=== PATIENT | female | born 1945 | race Caucasian/White ===

== ENCOUNTER 2021-06-02 16:57 | Inpatient (IN) | payer MEDICARE, BC ==
[~2021-06-02] VITALS: Ht 167.6 cm; Wt 62.3 kg
[2021-06-02 17:52] LABS: HEMATOCRIT 42.9 % (37.0-47.0); HEMOGLOBIN 13.6 g/dl (12.5-16.0); MEAN CELL VOLUME 92 fl (80.0-100.0); MEAN CORPUSCULAR HEMOGLOBIN 29 pg (27-31); MEAN CORPUSCULAR HGB CONC 32 g/dl (33.0-37.0); MEAN PLATELET VOLUME 10.2 fl (7.4-10.4); PLATELET COUNT 242 K/mm3 (130-400); RED BLOOD COUNT 4.66 M/mm3 (4.10-5.30); REDCELL DISTRIBUTION WIDTH-CV 13.8 % (11.5-14.5)
[2021-06-02 19:08] LABS: LYMPHOCYTE 9 % (20.0-51.0); NEUTROPHILS 86 % (42.0-75.2); PLATELET ESTIMATE NORMAL (NORMAL)
[2021-06-02 19:09] LABS: HYPOCHROMIA 1+
[2021-06-02 20:49] LABS: ALBUMIN 3.2 gm/dL (3.4-4.8); BILIRUBIN,TOTAL 0.9 mg/dL (0.2-1.2); CALCIUM 9.1 mg/dL (8.4-10.2); CREATININE, serum 0.8 mg/dL (0.57-1.11); POTASSIUM 4.2 mmol/L (3.5-4.5); TOTAL PROTEIN 7.1 gm/dL (6.2-8.1)
[2021-06-02 21:06] LABS: TROPONIN-I 0.017 ng/mL (0.00-0.033)
[2021-06-02] MEDS ORDERED: LIPITOR20 MG PO (21:53)
[2021-06-02 22:29] VITALS: BP 140/70; PULSE 97; TEMP 97.7
[2021-06-02] MEDS ORDERED: LASIX 20MG TABL20 MG PO (22:52)
[2021-06-02] MEDS ORDERED: FOSAMAX 70MG TA70 MG PO (22:52)
[2021-06-02] MEDS ORDERED: RT SPIRIVA18 MCG IH (22:52)
[2021-06-02] MEDS ORDERED: CATAPRES0.2 MG PO (22:53)
[2021-06-02] MEDS ORDERED: ASPIRIN 81M81 MG/TA2 PO (22:55)
[2021-06-02] MEDS ORDERED: OXYGEN (22:59)
[2021-06-02] MEDS ORDERED: VITAMINC1000TA PO (23:00)
[2021-06-02] MEDS ORDERED: VITAMIN D31000 IU PO (23:00)
[2021-06-02] MEDS ORDERED: OSCAL 500 TAB500 MG PO (23:01)
[2021-06-02] MEDS ORDERED: KLOR-CON 1010 MEQ PO (23:01)
[2021-06-02] MEDS ORDERED: MUCINEX 60600 MG/TA1 PO (23:02)
[2021-06-02] MEDS ORDERED: ALBUTEROL1.25 MG/3 IH (23:02)
[2021-06-03 00:32] VITALS: BP 113/89; PULSE 81; TEMP 97.7
[2021-06-03 04:59] VITALS: BP 140/63; PULSE 86; TEMP 97.6
[2021-06-03 06:42] LABS: HEMATOCRIT 42.3 % (37.0-47.0); HEMOGLOBIN 13.5 g/dl (12.5-16.0); MEAN CELL VOLUME 90 fl (80.0-100.0); MEAN CORPUSCULAR HEMOGLOBIN 29 pg (27-31); MEAN CORPUSCULAR HGB CONC 32 g/dl (33.0-37.0); MEAN PLATELET VOLUME 10.7 fl (7.4-10.4); PLATELET COUNT 190 K/mm3 (130-400); RED BLOOD COUNT 4.68 M/mm3 (4.10-5.30); REDCELL DISTRIBUTION WIDTH-CV 13.7 % (11.5-14.5)
[2021-06-03 07:06] LABS: CALCIUM 9.1 mg/dL (8.4-10.2); CREATININE, serum 0.69 mg/dL (0.57-1.11); MAGNESIUM 2.1 mg/dL (1.6-2.6); POTASSIUM 4.2 mmol/L (3.5-4.5)
[2021-06-03 07:20] VITALS: BP 142/77; PULSE 91; TEMP 97.5
[2021-06-03 07:38] LABS: BAND 8 % (0-10); BASOPHIL 1 % (0-2); LYMPHOCYTE 2 % (20.0-51.0); METAMYELOCYTE 1 % (0-0); NEUTROPHILS 89 % (42.0-75.2); OVALOCYTES 1+
[2021-06-03 07:39] LABS: PLATELET ESTIMATE NORMAL (NORMAL); POLYCHROMASIA 1+
--- NOTE | 2021-06-03 09:28 | NUR ---
Patient IV leaky in right AC. New IV started in the left hand. Patient denies any pain other than some stabbing pain when taking deep breaths, which is not abnormal for her. Patient otherwise has no other concerns. Independent in the room. Call light is w/in reach. Instructed to call if any needs arise.
--- NOTE | 2021-06-03 09:43 | NUR ---
social contact worker met with patient to discuss discharge plan. Patient states that she lives at home with her Misha Mejia in [place]. Patient states that she is fully independent with her ADL's and does not utilize any DME to assist with mobility. Patient states that she utilizes 2L of home oxygen at night which is managed through [facility]. PCP is Dr.Jason Lovett and she follows for pumonology. She utilizes [facility] in for perscriptions with no cost difficulty. Patient reports that she does not have a DPOA-HC established. Education provided and the patient verbalizes her agreement with her being her decision maker. Patient states that her has major hearing loss and that she would like her daughter Audra ([phone]) being her point of contact. Patient is planning on returning home with no concerns. Discharge plan: Home
--- NOTE | 2021-06-03 09:46 | NUR ---
Initial visit; Patient thanked Curing Machine Operator for looking in on her and offering God's blessings.
[2021-06-03 12:04] VITALS: BP 147/83; PULSE 84; TEMP 97.5
[2021-06-03] MEDS ORDERED: ALBUTEROL0.83 MG/ML IH (13:54)
[2021-06-03] MEDS ORDERED: RT ADVAIR 228 DISKUS IH (13:57)
[2021-06-03 15:20] VITALS: BP 141/69; PULSE 92; TEMP 97.9
--- NOTE | 2021-06-03 16:35 | NUR ---
Patient has done well today. Denies any concerns. Remains independent in the room w/ call light in reach.
[2021-06-03 20:18] VITALS: BP 147/72; PULSE 103; TEMP 97.8
[2021-06-04 00:26] VITALS: BP 148/63; PULSE 95; TEMP 97.6
[2021-06-04 04:08] VITALS: BP 172/80; PULSE 92; TEMP 97.8
[2021-06-04 04:30] VITALS: BP 160/74
--- NOTE | 2021-06-04 06:45 | NUR ---
ASSESSMENT COMPLETE FOR THIS SHIFT. PT RESTING IN BED. PT DENIED PAIN, PALPITATIONS, SOB, N,V,D OR DIZZINESS. PT DID COMPLAIN OF NOT BEING ABLE TO SLEEP. HOSPITALIST CALLED. MELATONIN ORDERED AND GIVEN. MELATONIN WAS EFFECTIVE FOR SEVERAL HOURS. PT HAD AN OTHERWISE UNEVENTFUL NIGHT UNTIL HER 0700HR DOXYCYCLINE VIA IV WAS STATED AND PT COMPLAINED OF PAIN. I ATTEMPTED UNSUCCESSFULLY TO START A NEW IV. DAYSHIFT RN INFORMED AND SHE WILL ATTEMPT A NEW IV SITE WELL. PT EXPRESSED NO OTHER NEEDS AT THIS TIME. CALL LIGHT WITHIN REACH.
[2021-06-04 07:18] VITALS: BP 177/86; PULSE 98; TEMP 97.8
--- NOTE | 2021-06-04 08:19 | NUR ---
Patient's IV was bothering her too bad, c/o of burning. This RN attempted to start an IV and was unsuccessful. Patient requested to switch to PO medications. Hospitalist was called and felt this was appropriate. Orders to be placed by hospitalist. Otherwise, patient appears to be doing well and has not concerns at the moment.
[2021-06-04 08:52] LABS: HEMATOCRIT 38.8 % (37.0-47.0); HEMOGLOBIN 12.7 g/dl (12.5-16.0); MEAN CELL VOLUME 89 fl (80.0-100.0); MEAN CORPUSCULAR HEMOGLOBIN 29 pg (27-31); MEAN CORPUSCULAR HGB CONC 33 g/dl (33.0-37.0); MEAN PLATELET VOLUME 10.3 fl (7.4-10.4); PLATELET COUNT 265 K/mm3 (130-400); RED BLOOD COUNT 4.37 M/mm3 (4.10-5.30); REDCELL DISTRIBUTION WIDTH-CV 13.4 % (11.5-14.5)
[2021-06-04 09:13] LABS: CALCIUM 9.3 mg/dL (8.4-10.2); CREATININE, serum 0.68 mg/dL (0.57-1.11); MAGNESIUM 1.8 mg/dL (1.6-2.6); POTASSIUM 3.7 mmol/L (3.5-4.5)
[2021-06-04] MEDS ORDERED: DOXYCYCLINE 10100 MG PO (10:49)
[2021-06-04] MEDS ORDERED: PREDNISONE10 MG PO (10:51)
--- NOTE | 2021-06-04 13:40 | NUR ---
All discharge education/instructions discussed. Patient verbalized understanding and signed paperwork. Patient had no IV access or telemetry in place. Patient is waiting for her to arrive and then she will be esocrted out w/ assistance.
--- NOTE | 2021-06-04 15:27 | NUR ---
Patient escorted out via wheelchair by PCT. Patient had no concerns at the time of discharge.
== END 2021-06-04 15:25 | disposition home or self-care (01) | DRG 190 ==
LOC: COL.ER 16:57 → MEDICAL 19:05
PROVIDERS: Nurse Practitioner Primary Care; Student in an Organized Health Care Education/Training Program; ADMIT Family Medicine
DX: J43.9 Emphysema, unspecified (principal); J96.21 Acute and chronic respiratory failure with hypoxia; I10 Essential (primary) hypertension; E78.5 Hyperlipidemia, unspecified; M81.0 Age-related osteoporosis without current pathological fracture; I73.9 Peripheral vascular disease, unspecified; J20.9 Acute bronchitis, unspecified; Z20.822 Contact with and (suspected) exposure to COVID-19; Z79.52 Long term (current) use of systemic steroids; Z99.81 Dependence on supplemental oxygen; Z87.891 Personal history of nicotine dependence
CPT/HCPCS: 99223-AI; 99233-AI; 99239; A9284; J1650; J2920

== ENCOUNTER → 2021-08-11 | Outpatient (CLI) | payer MEDICARE, BC ==
[~2021-08-11] MED LIST: ALBUTEROL0.83 MG/ML IH; ALBUTEROL1.25 MG/3 IH; ASPIRIN 81M81 MG/TA2 PO; CATAPRES0.2 MG PO; DOXYCYCLINE 10100 MG PO; FOSAMAX 70MG TA70 MG PO; KLOR-CON 1010 MEQ PO; LASIX 20MG TABL20 MG PO; LIPITOR20 MG PO; MUCINEX 60600 MG/TA1 PO; OSCAL 500 TAB500 MG PO; OXYGEN; PREDNISONE10 MG PO; RT ADVAIR 228 DISKUS IH; RT SPIRIVA18 MCG IH; VITAMIN D31000 IU PO; VITAMINC1000TA PO
== END ==
LOC: COL.VAS 12:05
DX: I27.20 Pulmonary hypertension, unspecified (principal)